=== PATIENT | female | born 1965 | race Caucasian/White ===

== ENCOUNTER → 2018-03-18 07:41 | Outpatient (CLI) | payer BC, SELFPAY ==
[2018-03-18 08:49] LABS: Absolute Lymphocyte Count 1.38 X10^3/ul (0.83-4.51); Absolute Neutrophil Count 2.9 X10^3/uL (2.0-7.7); Basophil# 0.05 X10^3/uL; Basophil% 0.9 % (0-1); Eosinophil# 0.44 X10^3/uL; Eosinophils% 8.3 % (0-5); Hematocrit 43.1 % (37-47); Hemoglobin 14.2 g/dl (12.0-15.0); Lymphocyte # 1.38 X10^3/ul (4.0); Lymphocyte % 25.9 % (19-41); Mean Corp Hgb Conc 32.9 g/gl (32-36); Mean Corpuscular Hgb 29.9 pg (27.0-32.0); Mean Corpuscular Volume 90.7 fL (81-99); Mean Platelet Vol. 9.8 fl (6.2-12.0); Monocyte# 0.56 X10^3/uL; Monocyte% 10.5 % (0-10); Neutrophil # 2.89 X10^3/uL (2.7-7.7); Neutrophil % 54.2 % (47-70); Platelet Count 289 K/mm3 (150-450); RBC Distribution Width CV 13.3 % (11.6-14.6); RBC Distribution Width SD 43.6 fl (35.1-43.9); Red Blood Count 4.75 M/mm3 (4.2-5.4); White Blood Count 5.3 K/mm3 (4.4-11.0)
[2018-03-18 08:53] LABS: POSITIVE COUNT NO; POSITIVE DIFFERENTIAL NO; POSITIVE MORPHOLOGY NO
[2018-03-18 09:22] LABS: ALB/GLOB Ratio 0.8 RATIO (0.9-2.4); AST(SGOT) 30 U/L (15-37); Alanine Aminotransfer ALT/SGPT 42 U/L (13-56); Albumin, Serum 3.5 g/dL (3.2-5.0); Alkaline Phosphatase 78 U/L (45-117); Anion Gap 5 (5-15); BUN 11 mg/dL (7-18); BUN/Creat Ratio 16.7 RATIO (10-20); Calcium,Total 8.6 mg/dL (8.5-10.1); Chloride 105 mmol/L (98-107); Cholesterol 253 mg/dL (200); Creatinine, Serum 0.66 mg/dL (0.55-1.02); EST Glomerular Filtration Rate 99 mL/min (>60); Est Glom Filt Rate - Afr Amer 120 mL/min (>60); Globulin 4.2 g/dL (2.2-4.2); Glucose 103 mg/dL (74-106); High Density Lipoprotein 50 mg/dL; Potassium 4.1 mmol/L (3.5-5.1); Protein, Total 7.7 g/dL (6.4-8.2); Sodium Level 138 mmol/L (136-145); Thyroid Stim Hormone (TSH) 2.16 uIU/mL (0.358-3.74); Triglycerides 73 mg/dL; Very Low Density Lipoprotein 15 mg/dL (5-40)
== END ==
PROVIDERS: Family Provider Family Medicine; PCP Family Medicine; Referring Provider Family Medicine; Visit Provider Family Medicine
DX: Z00.01 Encounter for general adult medical examination with abnormal findings (principal); K21.9 Gastro-esophageal reflux disease without esophagitis; R63.5 Abnormal weight gain
CPT/HCPCS: 36415; 80053; 80061; 84443; 85025

== ENCOUNTER → 2018-06-24 07:10 | Outpatient (CLI) | payer BC, SELFPAY ==
--- NOTE | 2018-06-24 07:15 | BI_ITS ---
MAMMOGRAPHY - BILATERAL SCREENING REASON FOR EXAM: Female, 52 years old. Routine annual screening examination. PERTINENT HISTORY: Non-contributory. TECHNIQUE: Digital bilateral breast vinay (3D mammographic acquisition) in the CC and MLO projections. 2-D mediolateral oblique (MLO) and craniocaudad (CC) views of both breasts were obtained. CAD: Full Field Digital Mammography with Computer Added Detection was performed. COMPARISON: Comparison is made with prior outside examination dated September 24, 2016. FINDINGS: Breast Composition: The breasts are heterogeneously dense, which may obscure small masses. There are no dominant masses or suspicious calcifications. Stable appearance of the small bilateral axillary lymph nodes. No other significant abnormalities are identified. There has been no significant change since the prior study. BI/SCREENING MAMM (CAD), BILAT IMPRESSION: Stable bilateral screening mammogram. Yearly follow-up mammogram recommended. (A) ASSESSMENT CATEGORY: BIRADS Category 2: Benign. A letter regarding these results will be sent to the patient by the facility within 30 days. Approximately 10% of breast cancers are not detected by mammography. A normal mammogram should not delay biopsy of a clinically suspicious abnormality. [id number] Electronically Signed: Paulo Corrigan MD at 15:38 EST , Service support ,
== END ==
PROVIDERS: Family Provider Family Medicine; PCP Family Medicine; Referring Provider Family Medicine; Visit Provider Family Medicine
DX: Z12.31 Encounter for screening mammogram for malignant neoplasm of breast (principal)
CPT/HCPCS: 77063; 77067

== ENCOUNTER → 2018-10-28 | Outpatient (CLI) | payer BC, SELFPAY ==
[2018-10-28 08:04] LABS: Cholesterol 246 mg/dL (200); High Density Lipoprotein 49 mg/dL; Triglycerides 64 mg/dL; Very Low Density Lipoprotein 13 mg/dL (5-40)
== END | disposition home or self-care (01) ==
LOC: LAB 06:44
PROVIDERS: Family Provider Family Medicine; PCP Family Medicine; Referring Provider Registered Nurse; Visit Provider Registered Nurse
DX: E78.5 Hyperlipidemia, unspecified (principal)
CPT/HCPCS: 36415; 80061

== ENCOUNTER → 2019-02-24 | Outpatient (CLI) | payer BC, SELFPAY ==
[2019-02-24 08:02] LABS: Absolute Lymphocyte Count 1.22 X10^3/uL (0.83-4.51); Absolute Neutrophil Count 3.2 X10^3/uL (2.0-7.7); Basophil# 0.04 X10^3/uL; Basophil% 0.8 % (0-1); Eosinophil# 0.28 X10^3/uL; Eosinophils% 5.3 % (0-5); Hematocrit 43.5 % (37-47); Hemoglobin 14.1 g/dL (12.0-15.0); Lymphocyte # 1.22 X10^3/ul (4.0); Lymphocyte % 23.3 % (19-41); Mean Corp Hgb Conc 32.4 g/dL (32-36); Mean Corpuscular Hgb 29.8 pg (27.0-32.0); Mean Platelet Vol. 9.7 fl (6.2-12.0); Monocyte# 0.49 X10^3/uL; Monocyte% 9.4 % (0-10); NRBC Flagged by Analyzer 0 % (0-5); Platelet Count 305 K/mm3 (150-450); RBC Distribution Width CV 12.8 % (11.6-14.6); RBC Distribution Width SD 43.2 fl (35.1-43.9); Red Blood Count 4.73 M/mm3 (4.2-5.4); White Blood Count 5.2 K/mm3 (4.4-11.0)
[2019-02-24 08:43] LABS: ALB/GLOB Ratio 0.8 RATIO (0.9-2.4); AST(SGOT) 19 U/L (15-37); Alanine Aminotransfer ALT/SGPT 29 U/L (13-56); Albumin, Serum 3.6 g/dL (3.2-5.0); Alkaline Phosphatase 82 U/L (45-117); Anion Gap 4 (5-15); BUN 17 mg/dL (7-18); BUN/Creat Ratio 26.2 RATIO (10-20); CRP, High Sensitivity Cardiac 5.93 mg/L; Calcium,Total 9.3 mg/dL (8.5-10.1); Chloride 108 mmol/L (98-107); Cholesterol 244 mg/dL (200); Creatinine, Serum 0.65 mg/dL (0.55-1.02); EST Glomerular Filtration Rate 101 mL/min (>60); Est Glom Filt Rate - Afr Amer 122 mL/min (>60); Estradiol 11.1 pg/mL; Follicle Stimulating Hormone 68.2 mIU/mL; Free T3 2.7 pg/mL (2.18-3.98); Globulin 4.4 g/dL (2.2-4.2); Glucose 110 mg/dL (74-106); High Density Lipoprotein 49 mg/dL; Iron 85 ug/dL (50-170); Luteinizing Hormone 30.6 mIU/mL; Magnesium 2.2 mg/dL (1.6-2.6); Potassium 3.9 mmol/L (3.5-5.1); Prolactin 13.8 ng/mL; Sodium Level 140 mmol/L (136-145); T4 Free Direct 0.83 ng/dL (0.76-1.46); T4 Total, Thyroxin 7.8 ug/dL (4.8-13.9); Triglycerides 69 mg/dL; Very Low Density Lipoprotein 14 mg/dL (5-40)
[2019-02-24 11:09] LABS: Homocysteine 6.4 umol/L (3.2-10.7)
[2019-02-24 11:10] LABS: Vitamin B12 428 pg/mL (211-911)
[2019-02-27 12:08] LABS: DHEA Sulfate 149.2 ug/dL (41.2-243.7); Insulin Like Growth Factor 198 ng/mL (53-190); Testosterone, % Free 1.96 % (0.50-2.80); Testosterone, Free 0.39 ng/dL (0.10-0.85); Testosterone, Total 20 ng/dL (3-41)
[2019-02-27 16:08] LABS: Sex Hormone-binding Globulin 46.7 nmol/L (17.3-125.0)
== END | disposition home or self-care (01) ==
PROVIDERS: Family Provider Family Medicine; PCP Family Medicine
DX: Z00.01 Encounter for general adult medical examination with abnormal findings (principal); K21.9 Gastro-esophageal reflux disease without esophagitis; E78.5 Hyperlipidemia, unspecified; M62.81 Muscle weakness (generalized); R53.82 Chronic fatigue, unspecified
CPT/HCPCS: 36415; 80053; 80061; 82306; 82533; 82607; 82627; 82670; 82746; 83001; 83002; 83036; 83090; 83540; 83735; 84144; 84146; 84270; 84305; 84402; 84403; 84436; 84439; 84443; 84481; 85025; 85027; 86141; 82626

== ENCOUNTER → 2019-03-03 | Outpatient (CLI) | payer BC, SELFPAY ==
--- NOTE | 2019-03-03 08:29 | BD_ITS ---
STUDY: DUAL ENERGY X-RAY ABSORPTIOMETRY / DXA REASON FOR EXAM: Female, 53 years old. Patient is postmenopausal. Loss of height. TECHNIQUE: Bone Mineral Density (BMD) measurements of lumbar spine and bilateral hips were obtained. COMPARISON: None. FINDINGS: Lumbar Spine (L1-L4): g/cm2 (1.069) / T-score (-0.8) / Z-score (0.0) Findings are suggestive of normal bone density with a low fracture risk. Left Femur Total: g/cm2 (1.141) / T-score (1.1) / Z-score (1.7) Left Femoral Neck: g/cm2 (1.050) / T-score (0.1) / Z-score (1.1) Right Femur Total: g/cm2 (1.145) / T-score (1.1) / Z-score (1.7) Right Femoral Neck: g/cm2 (1.081) / T-score (0.3) / Z-score (1.3) BD/Dexa Bone Density Study IMPRESSION: The patient is considered normal as outlined below according to World Epi Organization (WHO) criteria with a low fracture risk. Reference Information: The T-score is the number of standard deviations above or below the standard which is normal for young adults at their peak bone mineral density. The World Health Organization (WHO) interprets the T-scores as follows: Above -1 Normal bone density Between -1 and -2.5 Osteopenia Equal to / or below -2.5 Osteoporosis As a practical clinical guideline, osteopenia may be graded as follows: Mild -1 through -1.5 Moderate -1.6 through -2.0 Severe -2.1 through -2.4 The Z-score is the number of standard deviations above or below age-matched controls. A Z-score of less than -1.5 would be considered abnormal. References: 1. NIH Osteoporosis and Related Bone Diseases http://www.osteo.org 2. International Society for Clinical Densitometry http://www.iscd.org 3. National Osteoporosis Foundation http://www.nof.org Electronically Signed: Paulo Corrigan, at 15:30 EDT , Service support ,
== END | disposition home or self-care (01) ==
LOC: OPBD 08:22
PROVIDERS: Family Provider Family Medicine; PCP Family Medicine; Referring Provider Family Medicine; Visit Provider Family Medicine
DX: Z00.01 Encounter for general adult medical examination with abnormal findings (principal); Z78.0 Asymptomatic menopausal state; Z82.62 Family history of osteoporosis
CPT/HCPCS: 77080

== ENCOUNTER → 2019-07-07 07:40 | Outpatient (CLI) | payer BC, SELFPAY ==
--- NOTE | 2019-07-07 07:49 | US_ITS ---
STUDY: ABDOMINAL ULTRASOUND - RIGHT UPPER QUADRANT REASON FOR VISIT: Female, 53 years old [facility] ELEV[facility] TECHNIQUE: Ultrasound evaluation of the right upper quadrant was performed with real-time and static harris-scale imaging. TECHNICAL QUALITY: Adequate. COMPARISON: None. FINDINGS: Liver: The liver measures 12.5 cm. There is increased echogenicity consistent with fatty infiltration. The bile ducts are within normal limits. There is hepatic color flow. The direction of portal flow is hepatopetal. There is no demonstrated mass lesion. Gallbladder: Normal distended gallbladder. The gallbladder wall measures 2.5 mm. There is a negative sonographic Triplett''s sign. There is no pericholecystic fluid. There are no gallstones. 2 polyps are seen adherent to the gallbladder wall. The larger measures 5 mm x 4 mm x 4 mm. Common Bile Duct (C.B.D.): The common bile duct measures 3.0 mm. Pancreas: Normal size of the head, body and tail of the pancreas. There is normal echogenicity of the pancreas. There is no demonstrated pancreatic mass or cyst. Right Kidney: Normal size of the right kidney. The right kidney measures 10.6 cm x 4.8 cm x 5.9 cm. Normal renal cortex. The right cortex measures 1.9 cm. There is no demonstrated renal mass or cyst. There is no right hydronephrosis. US/Liver IMPRESSION: Fatty projection of the liver. There are 2 small gallbladder bladder polyps. Electronically Signed: Paulo Corrigan, at 14:09 EST , Service support ,
== END ==
PROVIDERS: PCP Family Medicine; Referring Provider Nurse Practitioner Family; Visit Provider Nurse Practitioner Family
DX: K76.0 Fatty (change of) liver, not elsewhere classified (principal); E78.00 Pure hypercholesterolemia, unspecified
CPT/HCPCS: 76705

== ENCOUNTER → 2020-07-08 15:19 | Outpatient (CLI) | payer BC, SELFPAY ==
[2020-07-15 09:08] LABS: Age Gdln ACOG Testing 30-65 (.)
[2020-07-15 10:04] LABS: HPV APTIMA, High Risk Negative (Negative)
[2020-07-15 22:08] LABS: HPV Reflexed? YES, CHARGE PATIENT
== END ==
PROVIDERS: PCP Family Medicine; Visit Provider Family Medicine
DX: Z12.4 Encounter for screening for malignant neoplasm of cervix (principal)
CPT/HCPCS: 87624; 88175; G0145

== ENCOUNTER → 2020-07-19 06:27 | Outpatient (CLI) | payer BC, SELFPAY ==
[2020-07-19 06:42] LABS: Absolute Lymphocyte Count 1.64 X10^3/uL (0.83-4.51); Absolute Neutrophil Count 2.5 X10^3/uL (2.0-7.7); Basophil# 0.07 X10^3/uL; Basophil% 1.4 % (0-1); Eosinophil# 0.21 X10^3/uL; Eosinophils% 4.2 % (0-5); Hematocrit 44.3 % (37-47); Hemoglobin 14.3 g/dL (12.0-15.0); Lymphocyte # 1.64 X10^3/ul (4.0); Lymphocyte % 33.1 % (19-41); Mean Corp Hgb Conc 32.3 g/dL (32-36); Mean Corpuscular Hgb 29.9 pg (27.0-32.0); Mean Corpuscular Volume 92.5 fL (81-99); Mean Platelet Vol. 9.1 fl (6.2-12.0); Monocyte# 0.53 X10^3/uL; Monocyte% 10.7 % (0-10); NRBC Flagged by Analyzer 0 % (0-5); Neutrophil % 50.4 % (47-70); Platelet Count 275 K/mm3 (150-450); RBC Distribution Width CV 12.6 % (11.6-14.6); RBC Distribution Width SD 43.6 fl (35.1-43.9); Red Blood Count 4.79 M/mm3 (4.2-5.4)
--- NOTE | 2020-07-19 07:15 | BI_ITS ---
MAMMOGRAPHY - BILATERAL SCREENING REASON FOR EXAM: Female, 54 years old. Routine annual screening examination. PERTINENT HISTORY: Non-contributory. TECHNIQUE: Digital bilateral breast mi (3D mammographic acquisition) in the CC and MLO projections. 2-D mediolateral oblique (MLO) and craniocaudad (CC) views of both breasts were obtained. CAD: Full Field Digital Mammography with Computer Added Detection was performed. COMPARISON: Comparison is made with prior study dated 06/24/2018. FINDINGS: Breast Composition: The breasts are heterogeneously dense, which may obscure small masses. There are no dominant masses or suspicious calcifications. Stable benign-appearing bilateral axillary lymph nodes. No other significant abnormalities are identified. There has been no significant change since the prior study. BI/SCRN MAMM (CAD)W/MI BILAT IMPRESSION: Stable bilateral screening mammogram. Yearly follow-up mammogram recommended. (A) ASSESSMENT CATEGORY: BIRADS Category 2: Benign. A letter regarding these results will be sent to the patient by the facility within 30 days. Approximately 10% of breast cancers are not detected by mammography. A normal mammogram should not delay biopsy of a clinically suspicious abnormality. [id number] Electronically Signed: Paulo Corrigan MD at 8:44 EST , Service support ,
[2020-07-19 07:39] LABS: ALB/GLOB Ratio 0.9 RATIO (0.9-2.4); AST(SGOT) 19 U/L (15-37); Alanine Aminotransfer ALT/SGPT 25 U/L (13-56); Albumin, Serum 3.6 g/dL (3.2-5.0); Alkaline Phosphatase 70 U/L (45-117); Anion Gap 5 (5-15); BUN 15 mg/dL (7-18); BUN/Creat Ratio 20.4 RATIO (10-20); CRP < 2.90 mg/L (0.0-3.0); Calcium,Total 8.9 mg/dL (8.5-10.1); Chloride 106 mmol/L (98-107); Cholesterol 262 mg/dL (200); Creatinine, Serum 0.74 mg/dL (0.55-1.02); EST Glomerular Filtration Rate 87 mL/min (>60); Est Glom Filt Rate - Afr Amer 105 mL/min (>60); Glucose 96 mg/dL (74-106); High Density Lipoprotein 59 mg/dL; Potassium 3.5 mmol/L (3.5-5.1); Protein, Total 7.6 g/dL (6.4-8.2); Sodium Level 139 mmol/L (136-145); Triglycerides 67 mg/dL; Very Low Density Lipoprotein 13 mg/dL (5-40)
[2020-07-19 08:46] LABS: Hemoglobin A1c 5.7 % (3.8-5.6)
== END ==
PROVIDERS: PCP Family Medicine; Referring Provider Family Medicine; Visit Provider Family Medicine
DX: Z12.31 Encounter for screening mammogram for malignant neoplasm of breast (principal); R73.03 Prediabetes; K21.9 Gastro-esophageal reflux disease without esophagitis; E78.5 Hyperlipidemia, unspecified; K76.0 Fatty (change of) liver, not elsewhere classified
CPT/HCPCS: 36415; 77063; 77067; 80053; 80061; 83036; 85025; 86140

== ENCOUNTER → 2021-09-19 | Outpatient (CLI) | payer BC, SELFPAY ==
--- NOTE | 2021-09-19 07:11 | BI_ITS ---
MAMMOGRAPHY - BILATERAL SCREENING REASON FOR EXAM: Female, 56 years old. Routine annual screening examination. PERTINENT HISTORY: Non-contributory. TECHNIQUE: Digital bilateral breast mi (3D mammographic acquisition) in the CC and MLO projections. 2-D mediolateral oblique (MLO) and craniocaudad (CC) views of both breasts were obtained. CAD: Full Field Digital Mammography with Computer Added Detection was performed. COMPARISON: Comparison is made with prior study dated 07/19/2020 and 06/24/2018. FINDINGS: Breast Composition: The breasts are heterogeneously dense, which may obscure small masses. There are no dominant masses or suspicious calcifications. Stable small benign-appearing bilateral axillary lymph nodes. No other significant abnormalities are identified. There has been no significant change since the prior study. BI/SCRN MAMM (CAD)W/MI BILAT IMPRESSION: Stable bilateral screening mammogram. Yearly follow-up mammogram recommended. (A) ASSESSMENT CATEGORY: BIRADS Category 2: Benign. A letter regarding these results will be sent to the patient by the facility within 30 days. Approximately 10% of breast cancers are not detected by mammography. A normal mammogram should not delay biopsy of a clinically suspicious abnormality. [id number] Electronically Signed: Paulo Corrigan MD at 9:17 EDT ,
== END | disposition home or self-care (01) ==
LOC: OPBI 07:09
PROVIDERS: PCP Internal Medicine; Referring Provider Internal Medicine; Visit Provider Internal Medicine
DX: Z12.31 Encounter for screening mammogram for malignant neoplasm of breast (principal)
CPT/HCPCS: 77063; 77067

== ENCOUNTER → 2021-09-26 | Outpatient (CLI) | payer BC, SELFPAY ==
[2021-09-26 07:04] LABS: Absolute Lymphocyte Count 1.52 X10^3/uL (0.83-4.51); Absolute Neutrophil Count 2.8 X10^3/uL (2.0-7.7); Basophil# 0.09 X10^3/uL; Basophil% 1.7 % (0-1); Eosinophil# 0.28 X10^3/uL; Eosinophils% 5.4 % (0-5); Hematocrit 44.1 % (37-47); Hemoglobin 14.4 g/dL (12.0-15.0); Lymphocyte # 1.52 X10^3/ul (0.83-4.51); Lymphocyte % 29.1 % (19-41); Mean Corp Hgb Conc 32.7 g/dL (32-36); Mean Corpuscular Hgb 29.9 pg (27.0-32.0); Mean Corpuscular Volume 91.7 fL (81-99); Mean Platelet Vol. 9.1 fl (6.2-12.0); Monocyte# 0.51 X10^3/uL; Monocyte% 9.8 % (0-10); NRBC Flagged by Analyzer 0 % (0-5); Neutrophil % 53.6 % (47-70); Platelet Count 299 K/mm3 (150-450); RBC Distribution Width CV 12.7 % (11.6-14.6); Red Blood Count 4.81 M/mm3 (4.2-5.4); White Blood Count 5.2 K/mm3 (4.4-11.0)
[2021-09-26 07:46] LABS: Progesterone Level 0.34 ng/mL (See Comment); Vitamin B12 636 pg/mL (211-911); Vitamin D,25 Hydroxy 33.3 ng/mL
[2021-09-26 07:47] LABS: Hemoglobin A1c 5.8 % (3.8-5.6)
[2021-09-26 07:54] LABS: ALB/GLOB Ratio 0.9 RATIO (0.9-2.4); AST(SGOT) 15 U/L (15-37); Alanine Aminotransfer ALT/SGPT 24 U/L (13-56); Albumin, Serum 3.5 g/dL (3.2-5.0); Alkaline Phosphatase 64 U/L (45-117); Anion Gap 8 (5-15); BUN 15 mg/dL (7-18); BUN/Creat Ratio 21.8 RATIO (10-20); CRP, High Sensitivity Cardiac 2.18 mg/L; Calcium,Total 8.9 mg/dL (8.5-10.1); Chloride 106 mmol/L (98-107); Cholesterol 259 mg/dL (200); Creatinine, Serum 0.69 mg/dL (0.55-1.02); EST Glomerular Filtration Rate 93 mL/min (>60); Est Glom Filt Rate - Afr Amer 113 mL/min (>60); Estradiol 12.3 pg/mL; Free T3 2.5 pg/mL (2.18-3.98); Globulin 3.9 g/dL (2.2-4.2); Glucose 106 mg/dL (74-106); High Density Lipoprotein 47 mg/dL; Homocysteine 7.5 umol/L (3.2-10.7); Iron 87 ug/dL (50-170); Iron Binding Capacity,Total 263 ug/dL (250-450); Magnesium 2.4 mg/dL (1.6-2.6); PERCENT IRON SATURATION 33.1 % (15.0-55.0); Potassium 3.9 mmol/L (3.5-5.1); Prolactin 9.7 ng/mL; Protein, Total 7.4 g/dL (6.4-8.2); Sodium Level 141 mmol/L (136-145); T4 Free Direct 0.84 ng/dL (0.76-1.46); Thyroid Stim Hormone (TSH) 2.27 uIU/mL (0.358-3.74); Triglycerides 105 mg/dL; Very Low Density Lipoprotein 21 mg/dL (5-40)
[2021-09-30 11:09] LABS: Insulin Like Growth Factor 177 ng/mL (60-207); Testosterone, % Free 1.54 % (0.50-2.80); Testosterone, Free 0.57 ng/dL (0.10-0.85); Testosterone, Total 37 ng/dL (4-50)
[2021-09-30 13:08] LABS: Sex Hormone-binding Globulin 43.5 nmol/L (17.3-125.0)
== END | disposition home or self-care (01) ==
PROVIDERS: PCP Internal Medicine; Referring Provider Internal Medicine; Visit Provider Internal Medicine
DX: E66.9 Obesity, unspecified (principal); I73.00 Raynaud's syndrome without gangrene; K86.89 Other specified diseases of pancreas; K76.0 Fatty (change of) liver, not elsewhere classified; K21.9 Gastro-esophageal reflux disease without esophagitis; E78.5 Hyperlipidemia, unspecified
CPT/HCPCS: 36415; 80053; 80061; 82306; 82533; 82607; 82627; 82670; 82746; 83036; 83090; 83540; 83550; 83735; 84144; 84146; 84270; 84305; 84402; 84403; 84439; 84443; 84481; 85025; 86141; 82626

== ENCOUNTER → 2022-12-07 | Outpatient (CLI) | payer BC, SELFPAY ==
--- NOTE | 2022-12-07 07:08 | BI_ITS ---
MAMMOGRAPHY - BILATERAL SCREENING 3-D TOMOSYNTHESIS REASON FOR EXAM: Female, 57 years old. Routine screening PERTINENT HISTORY: No significant family history. TECHNIQUE: 2-D mammograms and 3-D Tomosynthesis of the breast (s) were performed. CAD was performed. COMPARISON: 07/19/2020 FINDINGS: The breast composition is heterogeneously dense that can obscure small breast masses. Scattered benign calcifications are seen. No dense spiculated masses or suspicious microcalcifications are identified. No architectural distortion is identified. There is no skin thickening or retraction. There has been no significant change since the prior study. BI/SCRN MAMM (CAD)W/MI BILAT IMPRESSION: No mammographic signs of malignancy. Routine yearly mammograms recommended. ASSESSMENT CATEGORY: BIRADS Category 2: Benign. A letter regarding these results will be sent to the patient by the facility within 30 days. FOLLOW UP RECOMMENDATION: Yearly follow up mammogram recommended. (A) Approximately 10% of breast cancers are not detected by mammography. A normal mammogram should not delay biopsy of a clinically suspicious abnormality. Electronically Signed: Navid Aviles MD at 8:30 EDT ,
== END | disposition home or self-care (01) ==
LOC: OPBI 07:06
PROVIDERS: PCP Internal Medicine; Referring Provider Internal Medicine; Visit Provider Internal Medicine
DX: Z12.31 Encounter for screening mammogram for malignant neoplasm of breast (principal)
CPT/HCPCS: 77063; 77067

== ENCOUNTER → 2023-04-03 | Outpatient (CLI) | payer BC, SELFPAY ==
[2023-04-03 09:11] LABS: Absolute Lymphocyte Count 1.48 X10^3/uL (0.83-4.51); Absolute Neutrophil Count 3.1 X10^3/uL (2.0-7.7); Basophil# 0.06 X10^3/uL; Basophil% 1.1 % (0-1); Eosinophil# 0.34 X10^3/uL; Eosinophils% 6.1 % (0-5); Hematocrit 44.4 % (37-47); Hemoglobin 14.2 g/dL (12.0-15.0); Lymphocyte # 1.48 X10^3/ul (0.83-4.51); Lymphocyte % 26.8 % (19-41); Mean Corpuscular Hgb 29.6 pg (27.0-32.0); Mean Corpuscular Volume 92.5 fL (81-99); Mean Platelet Vol. 9.3 fl (6.2-12.0); Monocyte# 0.59 X10^3/uL; Monocyte% 10.7 % (0-10); NRBC Flagged by Analyzer 0 % (0-5); Neutrophil # 3.05 X10^3/uL (2.7-7.7); Neutrophil % 55.1 % (47-70); Platelet Count 319 K/mm3 (150-450); RBC Distribution Width CV 13.4 % (11.6-14.6); White Blood Count 5.5 K/mm3 (4.4-11.0)
[2023-04-03 09:50] LABS: Insulin 12.7 mU/L (2.6-37.6); Vitamin D,25 Hydroxy 42.5 ng/mL
[2023-04-03 09:51] LABS: Hemoglobin A1c 5.8 % (3.8-5.6)
[2023-04-03 09:59] LABS: ALB/GLOB Ratio 0.8 RATIO (0.9-2.4); AST(SGOT) 18 U/L (15-37); Alanine Aminotransfer ALT/SGPT 27 U/L (13-56); Albumin, Serum 3.4 g/dL (3.2-5.0); Alkaline Phosphatase 71 U/L (45-117); Anion Gap 7 (5-15); BUN 12 mg/dL (7-18); BUN/Creat Ratio 17.8 RATIO (10-20); Calcium,Total 8.3 mg/dL (8.5-10.1); Chloride 106 mmol/L (98-107); Cholesterol 251 mg/dL (200); Creatinine, Serum 0.67 mg/dL (0.55-1.02); EST Glomerular Filtration Rate 95 mL/min (>60); Est Glom Filt Rate - Afr Amer 115 mL/min (>60); Free T3 2.5 pg/mL (2.18-3.98); Globulin 4.2 g/dL (2.2-4.2); Glucose 98 mg/dL (74-106); High Density Lipoprotein 51 mg/dL; Potassium 3.8 mmol/L (3.5-5.1); Protein, Total 7.6 g/dL (6.4-8.2); Sodium Level 140 mmol/L (136-145); T4 Free Direct 0.83 ng/dL (0.76-1.46); Thyroid Stim Hormone (TSH) 1.95 uIU/mL (0.358-3.74); Triglycerides 104 mg/dL; Very Low Density Lipoprotein 21 mg/dL (5-40)
== END | disposition home or self-care (01) ==
LOC: LAB 08:10
PROVIDERS: PCP Internal Medicine; Referring Provider Internal Medicine; Visit Provider Internal Medicine
DX: Z00.00 Encounter for general adult medical examination without abnormal findings (principal); K76.0 Fatty (change of) liver, not elsewhere classified; E78.5 Hyperlipidemia, unspecified; E55.9 Vitamin D deficiency, unspecified; R73.9 Hyperglycemia, unspecified
CPT/HCPCS: 36415; 80053; 80061; 82306; 83036; 83525; 84439; 84443; 84481; 85025

== ENCOUNTER → 2024-01-30 | Outpatient (CLI) | payer BC, SELFPAY ==
--- NOTE | 2024-01-30 07:05 | BI_ITS ---
MAMMOGRAPHY - BILATERAL SCREENING REASON FOR EXAM: Female, 58 years old. Routine annual screening examination. PERTINENT HISTORY: Non-contributory. TECHNIQUE: Digital bilateral breast mi (3D mammographic acquisition) in the CC and MLO projections. 2-D mediolateral oblique (MLO) and craniocaudad (CC) views of both breasts were obtained. CAD: Full Field Digital Mammography with Computer Added Detection was performed. COMPARISON: Comparison is made with prior study dated December 07, 2022 and September 19, 2021. FINDINGS: Breast Composition: The breasts are heterogeneously dense, which may obscure small masses. There are no dominant masses or suspicious calcifications. Stable small benign-appearing bilateral axillary lymph nodes. No other significant abnormalities are identified. There has been no significant change since the prior study. BI/SCRN MAMM (CAD)W/MI BILAT IMPRESSION: Stable bilateral screening mammogram. Yearly follow-up mammogram recommended. (A) ASSESSMENT CATEGORY: BIRADS Category 2: Benign. A letter regarding these results will be sent to the patient by the facility within 30 days. Approximately 10% of breast cancers are not detected by mammography. A normal mammogram should not delay biopsy of a clinically suspicious abnormality. [id number] Electronically Signed: Paulo Corrigan MD at 8:21 EDT ,
== END | disposition home or self-care (01) ==
PROVIDERS: PCP Internal Medicine; Referring Provider Internal Medicine; Visit Provider Internal Medicine
DX: Z12.31 Encounter for screening mammogram for malignant neoplasm of breast (principal)
CPT/HCPCS: 77063; 77067

== ENCOUNTER → 2024-05-01 | Outpatient (CLI) | payer BC, SELFPAY ==
[2024-05-01 08:07] LABS: Absolute Lymphocyte Count 1.38 X10^3/uL (0.83-4.51); Absolute Neutrophil Count 2.6 X10^3/uL (2.0-7.7); Basophil# 0.09 X10^3/uL; Basophil% 1.8 % (0-1); Eosinophil# 0.35 X10^3/uL; Hematocrit 43.6 % (37-47); Hemoglobin 14.4 g/dL (12.0-15.0); Lymphocyte # 1.38 X10^3/ul (0.83-4.51); Lymphocyte % 27.6 % (19-41); Mean Corpuscular Hgb 29.9 pg (27.0-32.0); Mean Corpuscular Volume 90.6 fL (81-99); Mean Platelet Vol. 9.3 fl (6.2-12.0); Monocyte# 0.57 X10^3/uL; Monocyte% 11.4 % (0-10); NRBC Flagged by Analyzer 0 % (0-5); Platelet Count 322 K/mm3 (150-450); RBC Distribution Width CV 13.2 % (11.6-14.6); Red Blood Count 4.81 M/mm3 (4.2-5.4)
[2024-05-01 08:46] LABS: Hemoglobin A1c 5.9 % (3.8-5.6)
[2024-05-01 08:55] LABS: ALB/GLOB Ratio 0.9 RATIO (0.9-2.4); AST(SGOT) 17 U/L (15-37); Alanine Aminotransfer ALT/SGPT 25 U/L (13-56); Albumin, Serum 3.5 g/dL (3.2-5.0); Alkaline Phosphatase 76 U/L (45-117); Anion Gap 3 (5-15); BUN 15 mg/dL (7-18); BUN/Creat Ratio 21.2 RATIO (10-20); Calcium,Total 9.9 mg/dL (8.5-10.1); Chloride 106 mmol/L (98-107); Cholesterol 303 mg/dL (200); Creatinine, Serum 0.71 mg/dL (0.55-1.02); EST Glomerular Filtration Rate 90 mL/min (>60); Est Glom Filt Rate - Afr Amer 108 mL/min (>60); Estradiol < 11.0 pg/mL; Glucose 114 mg/dL (74-106); High Density Lipoprotein 55 mg/dL; Potassium 3.9 mmol/L (3.5-5.1); Protein, Total 7.5 g/dL (6.4-8.2); Sodium Level 138 mmol/L (136-145); Triglycerides 97 mg/dL; Very Low Density Lipoprotein 19 mg/dL (5-40)
[2024-05-04 09:22] LABS: PROGESTERONE 0.1 ng/mL (.)
[2024-05-04 15:36] LABS: Vitamin D,25 Hydroxy 34.8 ng/mL
== END | disposition home or self-care (01) ==
LOC: LAB 07:33
PROVIDERS: PCP Internal Medicine; Referring Provider Internal Medicine; Visit Provider Internal Medicine
DX: Z00.00 Encounter for general adult medical examination without abnormal findings (principal); E78.5 Hyperlipidemia, unspecified; E66.811 Obesity, class 1; K76.0 Fatty (change of) liver, not elsewhere classified; K21.9 Gastro-esophageal reflux disease without esophagitis; Z13.220 Encounter for screening for lipoid disorders; E55.9 Vitamin D deficiency, unspecified; R73.9 Hyperglycemia, unspecified
CPT/HCPCS: 36415; 80053; 80061; 82306; 82670; 83036; 83735; 84144; 84443; 85025

== ENCOUNTER → 2025-05-11 | Outpatient (CLI) | payer BC, SELFPAY ==
--- NOTE | 2025-05-11 07:15 | BI_ITS ---
EXAM: SCRN MAMM (CAD)W/MI BILAT DATE: 05/11/2025 CLINICAL HISTORY: F, Age 59 y/o , BREAST CANCER SCREENING TECHNIQUE: Procedure Code: [id number] Modality: MG Procedure: SCRN MAMM (CAD)W/MI BILAT COMPARISON: Prior exam(s) were compared FINDINGS: TISSUE DENSITY: The breasts are heterogeneously dense, which may obscure small masses. Bilateral Breast Mammographic Findings: No significant masses, calcifications or other abnormalities are identified. BI/SCRN MAMM (CAD)W/MI BILAT IMPRESSION: No mammographic evidence of malignancy. OVERALL FINAL ASSESSMENT BI-RADS 1: NEGATIVE. RECOMMENDATION: Routine annual follow-up in 1 Year Additional Recommendation none A letter with findings and recommendations will be mailed to the patient. Reading Location: [id number]
--- OUTSIDE RECORDS SUMMARY | 2025-05-11 07:19 | XMS RPT_ITS | CCD ---
Author Organization [facility] Care Team Providers Care Fact Checker Name Role Phone Dr. Lu Faust Primary Care Provider [phone] Marilyn Weber Attending Provider Unavailable Dr. Lu Faust Referring Provider Dr. Davonte Arellano Attending Provider [phone] Dr. Davonte Arellano Primary Care Provider Dr. Davonte Arellano Attending Provider [phone] DAVONTE ARELLANO Consulting Unavailable WON NORTON Attending Unavailable WON NORTON Primary Care Unavailable WON NORTON Admitting Unavailable PROVIDER, UNKNOWN Consulting Unavailable Davonte Arellano Attending Unavailable Davonte Arellano Primary Care Unavailable Davonte Arellano Primary Care Unavailable Davonte Arellano Attending Unavailable Davonte Arellano Referring Unavailable Davonte Arellano Primary Care Unavailable Davonte Arellano Attending Unavailable Davonte Arellano Referring Unavailable Medications Current Medications Medication Drug Class(es) Dates Sig (Normalized) Sig (Original) antronex (2 sources) Start: 08-24-2021 antronex Activ e PO August 24, 2021 11:13am Start: 08-24-2021 antronex Activ e PO August 23, 2021 11:00pm calcium lactate 100 mg oral capsule (2 sources) Start: 08-24-2021 take 100 mg by mouth twice daily Calcium Lactate Active 100 MG PO TWICE A DAY August 24, 2021 11:14am cholecalciferol 0.025 mg oral capsule (2 sources) Vitamin D Start: 08-24-2021 take 25 ug by mouth once daily Cholecalciferol (Vitamin D3) Active 25 MCG PO DAILY August 24, 2021 11:13am cyruta (2 sources) Start: 08-24-2021 cyruta Active PO August 24, 2021 11:14am Start: 08-24-2021 cyruta Active PO August 23, 2021 11:00pm enzycore (2 sources) Start: 08-24-2021 enzycore Activ e PO August 24, 2021 11:13am Start: 08-24-2021 enzycore Activ e PO August 23, 2021 11:00pm Lactobacillus Combination No.9 (Adult 50 Plus Probiotic) 4 billion cell capsule (1 source) Start: 03-04-2023 take 4 capsules by mouth once daily Lactobacillus Combination No.9 (Adult 50 Plus Probiotic) 4 billion cell capsule Active 4000 MMU CELLS PO DAILY March 03, 2023 11:00pm administer with a meal magnesium lactate 84 mg extended release oral tablet (1 source) Start: 03-04-2023 take 84 mg by mouth once daily Magnesium L-Lactate Active 84 MG PO DAILY March 03, 2023 11:00pm Milk Thistle (2 sources) Start: 08-24-2021 take 150 mg by mouth twice daily Milk Thistle Active 150 MG PO TWICE A DAY August 24, 2021 11:14am give with meal/snack Start: 08-24-2021 End: 03-04-2023 take 150 mg by mouth twice daily Milk Thistle Discontinued 150 MG PO TWICE A DAY August 23, 2021 11:00pm March 04, 2023 7:32am give with meal/snack [place] Extract (2 sources) Start: 08-24-2021 [place] Ext ract Active MG PO August 24, 2021 11:15am Start: 08-24-2021 [place] Ext ract Active MG PO August 23, 2021 11:00pm Zinc (2 sources) Start: 08-24-2021 take 50 mg by mouth once daily Zinc Active 50 MG PO DAILY August 24, 2021 11:14am Start: 08-24-2021 take 50 mg by mouth once daily Zinc Active 50 MG PO DAILY August 23, 2021 11:00pm zypan (2 sources) Start: 08-24-2021 zypan Active P O August 24, 2021 11:13am Start: 08-24-2021 zypan Active P O August 23, 2021 11:00pm Problems Problem Classification Problem Date Documented Date Episodic/Chronic Disorders of lipid metabolism (4 sources) Hyperlipidemia; Translations: [Hyperlipidemia, unspecified] Chronic Esophageal disorders (3 sources) Gastroesophageal reflux disease; Translations: [Gastro-esophageal reflux disease without esophagitis] Chronic Other acquired deformities (2 sources) Scoliosis deformity of spine; Translations: [Scoliosis, unspecified] 08-24-2021 Chronic Other circulatory disease (2 sources) Raynaud's disease; Translations: [Raynaud's syndrome without gangrene] 08-29-2021 Chronic Other circulatory disease (1 source) Raynaud's syndrome without gangrene; Translations: [Raynaud's syndrome] Chronic Other liver diseases (2 sources) Steatosis of liver; Translations: [Fatty (change of) liver, not elsewhere classified] 08-29-2021 Chronic Other liver diseases (2 sources) Fatty (change of) liver, not elsewhere classified; Translations: [Other chronic nonalcoholic liver disease] Chronic Other nutritional; endocrine; and metabolic disorders (2 sources) Obese class I; Translations: [Obesity, unspecified] 08-29-2021 Chronic Other nutritional; endocrine; and metabolic disorders (1 source) Obesity, unspecified; Translations: [Obesity, unspecified] Chronic Other screening for suspected conditions (not mental disorders or infectious disease) (3 sources) Patient encounter status; Translations: [Encounter for other screening for malignant neoplasm of breast] Onset: 03-29-2025 08-29-2021 Episodic Pancreatic disorders (not diabetes) (3 sources) Pancreatic insufficiency; Translations: [Other specified diseases of pancreas] Episodic Spondylosis; intervertebral disc disorders; other back problems (2 sources) Back problem; Translations: [Dorsopathy, unspecified] 08-24-2021 Episodic Results Test Name Value Interpretation Reference Range Facility MR/BMS.IMBon 03-25-2025 MR/BMS.IMB [facility] [address] [place] [address] OFFICE VISIT Date of Service: 03/25/25 MR#: [id number] Acct: [id number] Name: VERNON LEYVA Rep #: [id number] : [id number] Provider: Dr. 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 Accompanied by: Self Is patient in pain?: No Allergies No Known Allergies Allergy (Verified 03/25/25 11:02) Medications ???Medication ???Instructions ???Recorded ???Confirmed ???Type antronex PO 08/24/21 03/25/25 History calcium lactate 100 mg PO BID 08/24/21 03/25/25 Hi story cyruta PO 08/24/21 03/25/25 History enzycore PO 08/24/21 03/25/25 History olive leaf extract 250 mg capsule mg PO 08/24/21 03/25/25 History zinc 50 mg tablet 50 mg PO DAILY 08/24/21 03/25/25 H istory zypan PO 08/24/21 03/25/25 History lactobacillus combination no.9 4 4,000 mmu cells PO DAILY 03/04/23 03/25/25 History billion cell capsule (Adult 50 Plus Probiotic) magnesium L-lactate 84 mg 84 mg PO DAILY 03/04/23 03/25/25 H istory tablet,extended release cod liver oil 1 cap PO ONCE 03/16/24 03/25/25 Hi story Slippery elm root PO 03/25/25 History berberine-herbal drugs capsule cap PO BID 03/25/25 03/25/25 Histo ry cataplex C PO 03/25/25 History cataplex D PO 03/25/25 History coenzyme Q10 10 mg capsule 10 mg PO ONCE 03/25/25 03/25/25 Hi story PFSH Medical History Raynaud's disease Pancreatic insufficiency Fatty liver GERD (gastroesophageal reflux disease) Hyperlipemia Scoliosis Back problem Surgical History History of toe surgery History of dilatation and curettage History of tonsillectomy Family History Sister Alcoholism Father Heart disease Hyperlipemia Mother Osteoporosis Social History Smoking Status: Never smoker alcohol intake: never substance use type: does not use what type of physical activity do you participate in: walking and bicycling frequency: daily HPI HPI Chief Complaint: No acute concerns Details: VERNON LEYVA, is a 59 F who presents to the office today for annual follow-up/wellness visit. Patient is a 59-year-old female who has a history of hyperlipidemia, fatty liver, however she takes no routine long-term prescription medications. Overall she does not have any new acute concerns. Last year she did mention an area on her back where she had been somewhat of an abnormal sensation. Uncomfortable, not severe pain, tingly discomfort. This is somewhat towards the middle of the back, thoracic region. 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 She does not necessarily want to go back there and I did make suggestions of another chiropractic locally that she could consider. In addition, she had tried myofascial therapy which could be considered once again. She does have underlying scoliosis which could be contributing. Review of systems per chart. No chest pain, chest tightness, shortness of breath, wheeze, cough, congestion, fever, chills, nausea or vomiting. Appetites been stable. No dysuria, urgency or frequency reported. Physical exam. Vital signs on chart. PERRLA. Sclera are clear. TMs are unremarkable with normal light reflexes. Canals are unremarkable. Posterior pharynx is unremarkable. Good dentition. No cervical or supraclavicular lymph nodes enlarged or tender. No clear thyromegaly. No thyroid nodules readily palpable. No carotid bruits. Lungs are without wheeze, rhonchi, rales. No E/A changes are heard. Heart is regular. Not tachycardic. No clear murmur, rub, or gallop is identified. The abdomen is soft. Bowel sounds are present. Nontender nondistended abdomen. No clear palpable masses in the abdomen. No significant leg edema. Cranial nerve examination 2 through 12 are grossly unremarkable nonlateralizing. No obvious rashes. No obvious significant skin lesions are identified. ROS Const Constitutional: No body ache, chills, excessive sweating, fatigue, fever(s), frequent falls, headache(s), snoring, weakness or change in appetite Eyes Eyes: No blurry vision, change in vis (more content not included)... Normal [facility] PROGESTERONE 4317on 05-04-20 24 PROGESTERONE 0.1 ng/mL Normal . [facility] Comment on above: Order Comment: N Result Comment: Foll icular phase 0.1 - 0.9 Luteal phase 1.8 - 23.9 Ovulation phase 0.1 - 12.0 First trimester 11.0 - 44.3 Second trimester 25.4 - 83.3 Third trimester 58.7 - 214.0 Postmenopausal 0.0 - 0.1 Performed at: [facility] [address] [id number] Quality Assurance Tester: Robbi Suarez PhD, Phone: [phone] Performed By: #### L 100.0100, L501.9520, L501.9985, L801.2600, L500.4050, L500.4100, L506.1000, L501.5200, L3300.1750 #### [facility] [address] [place], [address] Vitamin D,25 Hydroxyon 05-04 Vitamin D 25-OH 34.8 ng/mL Normal [facility] Comment on above: Result Comment: Lizabeth min D 25(OH) Status Range Deficiency <20 ng/mL (50nmol/L) Insufficiency 20 - 30 ng/mL (50 - 75 nmol/L) Sufficiency 30 - 100 ng/mL (75 - 250 nmol/L) Toxicity >100 ng/mL (>250 nmol/L) Performed By: #### L 100.0100, L501.9520, L501.9985, L801.2600, L500.4050, L500.4100, L506.1000, L501.5200, L3300.1750 #### [facility] [address] [place], [address] CBC W/Diff, Automatedon 12 Absolute Lymph 1.38 X10 3/uL Normal 0.83-4.51 [facility] Comment on above: Performed By: #### L 100.0100, L501.9520, L501.9985, L801.2600, L500.4050, L500.4100, L506.1000, L501.5200, L3300.1750 #### [facility] [address] [place], [address] Absolute Neut 2.6 X10 3/uL Normal 2.0-7.7 [facility] Comment on above: Performed By: #### L 100.0100, L501.9520, L501.9985, L801.2600, L500.4050, L500.4100, L506.1000, L501.5200, L3300.1750 #### [facility] [address] [place], [address] Basophils/100 WBC (Bld) 1.8 % High 0-1 [facility] Comment on above: Performed By: #### L 100.0100, L501.9520, L501.9985, L801.2600, L500.4050, L500.4100, L506.1000, L501.5200, L3300.1750 #### [facility] [address] [place], [address] Eosinophils/100 WBC (Bld) 7.0 % High 0-5 [facility] Comment on above: Performed By: #### L 100.0100, L501.9520, L501.9985, L801.2600, L500.4050, L500.4100, L506.1000, L501.5200, L3300.1750 #### [facility] [address] [place], [address] Erythrocyte distribution width (RBC) [Ratio] 13.2 % Normal 11.6-14.6 [facility] Comment on above: Performed By: #### L 100.0100, L501.9520, L501.9985, L801.2600, L500.4050, L500.4100, L506.1000, L501.5200, L3300.1750 #### [facility] [address] [place], [place], [phone] (676) Hematocrit (Bld) [Volume fraction] 43.6 % Normal 37-47 [facility] Comment on above: Performed By: #### L 100.0100, L501.9520, L501.9985, L801.2600, L500.4050, L500.4100, L506.1000, L501.5200, L3300.1750 #### [facility] [address] [place], [address] (324) Hemoglobin (Bld) [Mass/Vol] 14.4 g/dL Normal 12.0-15.0 [facility] Comment on above: Performed By: #### L 100.0100, L501.9520, L501.9985, L801.2600, L500.4050, L500.4100, L506.1000, L501.5200, L3300.1750 #### [facility] [address] [place], [place], [phone] (946) IG% 0.200 Normal 0.0-0.9 [facility] Comment on above: Result Comment: IG% - Immature Granulocytes (promyelocytes, myelocytes and metamyelocytes) > 1% indicates that a LEFT SHIFT is Present. Performed By: #### L 100.0100, L501.9520, L501.9985, L801.2600, L500.4050, L500.4100, L506.1000, L501.5200, L3300.1750 #### [facility] [address] [place], [address] (377) Lymphocytes/100 WBC (Bld) 27.6 % Normal 19-41 [facility] Comment on above: Performed By: #### L 100.0100, L501.9520, L501.9985, L801.2600, L500.4050, L500.4100, L506.1000, L501.5200, L3300.1750 #### [facility] [address] [place], [address] MCH (RBC) [Entitic mass] 29.9 pg Normal 27.0-32.0 [facility] Comment on above: Performed By: #### L 100.0100, L501.9520, L501.9985, L801.2600, L500.4050, L500.4100, L506.1000, L501.5200, L3300.1750 #### [facility] [address] [place], [address] MCHC (RBC) [Mass/Vol] 33.0 g/dL Normal 32-36 [facility] Comment on above: Performed By: #### L 100.0100, L501.9520, L501.9985, L801.2600, L500.4050, L500.4100, L506.1000, L501.5200, L3300.1750 #### [facility] [address] [place], [address] MCV (RBC) [Entitic vol] 90.6 fL Normal 81-99 [facility] Comment on above: Performed By: #### L 100.0100, L501.9520, L501.9985, L801.2600, L500.4050, L500.4100, L506.1000, L501.5200, L3300.1750 #### [facility] [address] [place], [address] Monocytes/100 WBC (Bld) 11.4 % High 0-10 [facility] Comment on above: Performed By: #### L 100.0100, L501.9520, L501.9985, L801.2600, L500.4050, L500.4100, L506.1000, L501.5200, L3300.1750 #### [facility] [address] [place], [address] Neutrophils/100 WBC (Bld) 52.0 % Normal 47-70 [facility] Comment on above: Performed By: #### L 100.0100, L501.9520, L501.9985, L801.2600, L500.4050, L500.4100, L506.1000, L501.5200, L3300.1750 #### [facility] [address] [place], [address] Nucleated RBC (Bld) [#/Vol] 0 10*3/uL Normal 0-5 [facility] Comment on above: Performed By: #### L 100.0100, L501.9520, L501.9985, L801.2600, L500.4050, L500.4100, L506.1000, L501.5200, L3300.1750 #### [facility] [address] [place], [address] Platelet mean volume (Bld) [Entitic vol] 9.3 fL Normal 6.2-12.0 [facility] Comment on above: Performed By: #### L 100.0100, L501.9520, L501.9985, L801.2600, L500.4050, L500.4100, L506.1000, L501.5200, L3300.1750 #### [facility] [address] [place], [address] Platelets (Bld) [#/Vol] 322 10*3/uL Normal 150-450 [facility] Comment on above: Performed By: #### L 100.0100, L501.9520, L501.9985, L801.2600, L500.4050, L500.4100, L506.1000, L501.5200, L3300.1750 #### [facility] [address] [place], [address] RBC (Bld) [#/Vol] 4.81 10*6/uL Normal 4.2-5.4 [facility] Comment on above: Performed By: #### L 100.0100, L501.9520, L501.9985, L801.2600, L500.4050, L500.4100, L506.1000, L501.5200, L3300.1750 #### [facility] [address] [place], [address] RDW SD 44.0 fl High 35.1-43.9 [facility] Comment on above: Performed By: #### L 100.0100, L501.9520, L501.9985, L801.2600, L500.4050, L500.4100, L506.1000, L501.5200, L3300.1750 #### [facility] [address] [place] [place], [address] WBC (Bld) [#/Vol] 5.0 10*3/uL Normal 4.4-11.0 [facility] Comment on above: Performed By: #### L 100.0100, L501.9520, L501.9985, L801.2600, L500.4050, L500.4100, L506.1000, L501.5200, L3300.1750 #### [facility] [address] [place] [place], [address] Comprehensive Metabolic Prof [facility] 05-01-2024 Albumin [Mass/Vol] 3.5 g/dL Normal 3.2-5.0 [facility] Comment on above: Performed By: #### L 100.0100, L501.9520, L501.9985, L801.2600, L500.4050, L500.4100, L506.1000, L501.5200, L3300.1750 #### [facility] [address] [place], [address] Albumin/Globulin [Mass ratio] 0.9 {ratio} Normal 0.9-2.4 [facility] Comment on above: Performed By: #### L 100.0100, L501.9520, L501.9985, L801.2600, L500.4050, L500.4100, L506.1000, L501.5200, L3300.1750 #### [facility] [address] [place], [address] ALK P 76 U/L Normal 45-117 [facility] Comment on above: Performed By: #### L 100.0100, L501.9520, L501.9985, L801.2600, L500.4050, L500.4100, L506.1000, L501.5200, L3300.1750 #### [facility] [address] [place], [address] ALT [Catalytic activity/Vol] 25 U/L Normal 13-56 [facility] Comment on above: Performed By: #### L 100.0100, L501.9520, L501.9985, L801.2600, L500.4050, L500.4100, L506.1000, L501.5200, L3300.1750 #### [facility] [address] [place], [address] AST [Catalytic activity/Vol] 17 U/L Normal 15-37 [facility] Comment on above: Performed By: #### L 100.0100, L501.9520, L501.9985, L801.2600, L500.4050, L500.4100, L506.1000, L501.5200, L3300.1750 #### [facility] [address] [place], [address] Bilirubin [Mass/Vol] 0.50 mg/dL Normal 0.20-1.00 [facility] Comment on above: Result Comment: For patients on eltrombopag therapy, use of Dimension [place] TBIL is not recommended. Performed By: #### L 100.0100, L501.9520, L501.9985, L801.2600, L500.4050, L500.4100, L506.1000, L501.5200, L3300.1750 #### [facility] [address] [place], [address] BUN/CRE 21.2 RATIO High 10-20 [facility] Comment on above: Performed By: #### L 100.0100, L501.9520, L501.9985, L801.2600, L500.4050, L500.4100, L506.1000, L501.5200, L3300.1750 #### [facility] [address] [place], [address] CA,Total 9.9 mg/dL Normal 8.5-10.1 [facility] Comment on above: Performed By: #### L 100.0100, L501.9520, L501.9985, L801.2600, L500.4050, L500.4100, L506.1000, L501.5200, L3300.1750 #### [facility] [address] [place], [address] Chloride [Moles/Vol] 106 mmol/L Normal 98-107 [facility] Comment on above: Performed By: #### L 100.0100, L501.9520, L501.9985, L801.2600, L500.4050, L500.4100, L506.1000, L501.5200, L3300.1750 #### [facility] [address] [place], [address] CO2 [Moles/Vol] 30.0 mmol/L Normal 21.0-32.0 [facility] Comment on above: Performed By: #### L 100.0100, L501.9520, L501.9985, L801.2600, L500.4050, L500.4100, L506.1000, L501.5200, L3300.1750 #### [facility] [address] [place], [address] Creatinine [Mass/Vol] 0.71 mg/dL Normal 0.55-1.02 [facility] Comment on above: Result Comment: The validity of the calculated GFR GFRAA in patients over 70 years has not been determined. Clinical correlation is essential. Performed By: #### L 100.0100, L501.9520, L501.9985, L801.2600, L500.4050, L500.4100, L506.1000, L501.5200, L3300.1750 #### [facility] [address] [place], [place], [id number] (099 EST GFR - AA 108 mL/min Normal >60 [facility] Comment on above: Result Comment: Afri can Spanish GFR Calc Performed By: #### L 100.0100, L501.9520, L501.9985, L801.2600, L500.4050, L500.4100, L506.1000, L501.5200, L3300.1750 #### [facility] [address] [place], [address] GAP 3 Low 5-15 [facility] Comment on above: Performed By: #### L 100.0100, L501.9520, L501.9985, L801.2600, L500.4050, L500.4100, L506.1000, L501.5200, L3300.1750 #### [facility] [address] [place], [place], [id number] (172 GFR/1.73 sq M.predicted among non-blacks MDRD (S/P/Bld) [Vol rate/Area] 90 mL/min/{1.73_m2} Normal >60 [facility] Comment on above: Result Comment: Non- GFR Calc Performed By: #### L 100.0100, L501.9520, L501.9985, L801.2600, L500.4050, L500.4100, L506.1000, L501.5200, L3300.1750 #### [facility] [address] [place], [address] Globulin (S) [Mass/Vol] 4.0 g/dL Normal 2.2-4.2 [facility] Comment on above: Performed By: #### L 100.0100, L501.9520, L501.9985, L801.2600, L500.4050, L500.4100, L506.1000, L501.5200, L3300.1750 #### [facility] [address] [place], [address] Glucose [Mass/Vol] 114 mg/dL High 74-106 [facility] Comment on above: Result Comment: Fast ing Glucose result from 100 to 125 mg/dL suggests IMPAIRED HOMEOSTASIS per A.D.A. criteria. Performed By: #### L 100.0100, L501.9520, L501.9985, L801.2600, L500.4050, L500.4100, L506.1000, L501.5200, L3300.1750 #### [facility] [address] [place], [address] Potassium [Moles/Vol] 3.9 mmol/L Normal 3.5-5.1 [facility] Comment on above: Performed By: #### L 100.0100, L501.9520, L501.9985, L801.2600, L500.4050, L500.4100, L506.1000, L501.5200, L3300.1750 #### [facility] [address] [place], [address] Sodium [Moles/Vol] 138 mmol/L Normal 136-145 [facility] Comment on above: Performed By: #### L 100.0100, L501.9520, L501.9985, L801.2600, L500.4050, L500.4100, L506.1000, L501.5200, L3300.1750 #### [facility] [address] [place], [address] T PROT 7.5 g/dL Normal 6.4-8.2 [facility] Comment on above: Performed By: #### L 100.0100, L501.9520, L501.9985, L801.2600, L500.4050, L500.4100, L506.1000, L501.5200, L3300.1750 #### [facility] [address] [place], [place], [id number] Urea nitrogen [Mass/Vol] 15 mg/dL Normal 7-18 [facility] Comment on above: Performed By: #### L 100.0100, L501.9520, L501.9985, L801.2600, L500.4050, L500.4100, L506.1000, L501.5200, L3300.1750 #### [facility] [address] [place], [address] Estradiolon 05-01-2024 ESTRADIOL < 11.0 Normal [facility] Comment on above: Result Comment: NORM AL REFERENCE RANGES FEMALE FOLLICULAR 21.4 - 164.8 pg/mL MID-CYCLE PEAK 49.9 - 367.2 pg/mL LUTEAL 40.2 - 259.0 pg/mL POST-MENOPAUSAL ON MHT <11.0 - 462.1 pg/mL NOT ON MHT <11.0 - 58.3 pg/mL MALE <11.0 - 52.5 pg/mL NOTE: [employer] HAS CONFIRMED THE DRUG FULVETRANT (FASLODEX) MAY CAUSE FALSELY ELEVATED ESTRADIOL RESULTS WHEN USING THIS TEST METHOD. IF PATIENT IS TAKING FULVESTRANT AN ALTERNATIVE METHOD SHOULD BE USED TO DETERMINE ESTRADIOL CONCENTRATION. Performed By: #### L 100.0100, L501.9520, L501.9985, L801.2600, L500.4050, L500.4100, L506.1000, L501.5200, L3300.1750 #### [facility] [address] [place], [address] Hemoglobin A1con 05-01-2024 HbA1c (Bld) [Mass fraction] 5.9 % High 3.8-5.6 [facility] Comment on above: Result Comment: Norm al < 5.7 % Prediabetic 5.7 - 6.4 % Diabetic >or= 6.5 % Please note range changes. Performed By: #### L 100.0100, L501.9520, L501.9985, L801.2600, L500.4050, L500.4100, L506.1000, L501.5200, L3300.1750 #### [facility] [address] [place], [address] Lipid Profileon 05-01-2024 Cholesterol [Mass/Vol] 303 mg/dL High 200 [facility] Comment on above: Result Comment: <200 mg/dL Desirable 200-240 mg/dL Borderline >240 mg/dL High Risk Performed By: #### L 100.0100, L501.9520, L501.9985, L801.2600, L500.4050, L500.4100, L506.1000, L501.5200, L3300.1750 #### [facility] [address] [place], [address] Cholesterol in HDL [Mass/Vol] 55 mg/dL Normal [facility] Comment on above: Result Comment: The drugs N-Acetylcysteine and Metamizole may falsely depress this assay. Reference Range HDL <40 mg/dL Low HDL Cholesterol HDL >or= 60 mg/dL High HDL Cholesterol Performed By: #### L 100.0100, L501.9520, L501.9985, L801.2600, L500.4050, L500.4100, L506.1000, L501.5200, L3300.1750 #### [facility] [address] [place], [address] Cholesterol in LDL [Mass/Vol] 229 mg/dL High 0-130 [facility] Comment on above: Performed By: #### L 100.0100, L501.9520, L501.9985, L801.2600, L500.4050, L500.4100, L506.1000, L501.5200, L3300.1750 #### [facility] [address] [facility] [place], [address] Cholesterol in VLDL [Mass/Vol] 19 mg/dL Normal 5-40 [facility] Comment on above: Performed By: #### L 100.0100, L501.9520, L501.9985, L801.2600, L500.4050, L500.4100, L506.1000, L501.5200, L3300.1750 #### [facility] [address] [facility] [place], [address] Triglyceride [Mass/Vol] 97 mg/dL Normal [facility] Comment on above: Result Comment: The drugs N-Acetylcysteine and Metamizole may falsely depress this assay. Serum Triglycerides Reference Interval Normal <150 mg/dL Borderline high 150 - 199 mg/dL High 200 - 499 mg/dL Very High > or = 500 mg/dL Performed By: #### L 100.0100, L501.9520, L501.9985, L801.2600, L500.4050, L500.4100, L506.1000, L501.5200, L3300.1750 #### [facility] [address] [place], [address] Magnesiumon 05-01-2024 Magnesium [Mass/Vol] 2.0 mg/dL Normal 1.6-2.6 [facility] Comment on above: Performed By: #### L 100.0100, L501.9520, L501.9985, L801.2600, L500.4050, L500.4100, L506.1000, L501.5200, L3300.1750 #### [facility] [address] [facility] [place], [place], [id number] Thyroid Stim Hormone (TSH)on 05-01-2024 TSH 2.120 uIU/mL Normal 0.358-3.740 [facility] Comment on above: Performed By: #### L 100.0100, L501.9520, L501.9985, L801.2600, L500.4050, L500.4100, L506.1000, L501.5200, L3300.1750 #### [facility] [address] [facility] [place], [place], [id number] QUANTIFERON TB INCUBATED [CC L]on 08-14-2023 Mitogen minus Nil >9.98 Normal >=0.50 [facility] Comment on above: Performed By: #### 2 92777 #### [facility],[address] [place] [address] TB Gamma Interpretation Infection with M . tuberculosis complex is unlikely. If latent tuberculosis infec Normal [facility] Comment on above: Result Comment: [facility] [address] [place] [address] Wally Nick III, M.D. [id number] Performed By: #### 2 23532 #### [facility],[address] [place] [address] TB NIL 0.02 IU/mL Normal <=8.00 [facility] Comment on above: Performed By: #### 2 70630 #### [facility],[address] [place] [address] TB Result Negative Normal [facility] Comment on above: Performed By: #### 2 39095 #### [facility],[address] [place] [address] TB1 Ag minus Nil 0.15 IU/mL Normal <0.35 [facility] Comment on above: Performed By: #### 2 72923 #### [facility],[address] [place] [address] TB2 Ag minus Nil 0.10 IU/mL Normal <0.35 [facility] Comment on above: Performed By: #### 2 48834 #### [facility],[address] [place] [address] HEP B SURFACE AB, QUANT [CCL ]on 08-13-2023 HepB Surface Ab,Qual Equivocal Normal [facility] Comment on above: Result Comment: No s erological evidence of immunity to Hepatitis B Virus. Performed By: #### 2 64636 #### [facility],[address] [place] [address] HepB SurfaceAb,Quant 11.00 mIU/mL Normal [facility] Comment on above: Result Comment: <8 m IU/mL: No serological evidence of immunity to Hepatitis B Virus. >/= 8 to <12 mIU/mL: No serological evidence of immunity to Hepatitis B Virus. >/= 12 mIU/mL: Consistent with serological evidence of immunity to Hepatitis B Virus. Result rechecked. [facility] [employer] [address] [place] [id number] Wally Nick III, M.D. [id number] Performed By: #### 2 37026 #### [facility],[address] [place] [address] MEASLES IGG ANTIBODY [CCL]on 08-13-2023 Measles IgG, Qual Positive Normal Positive [facility] Comment on above: Result Comment: The result suggests recent or past exposure to Measles virus or Measles vaccination. The current test does not detect neutralizing antibodies. Positive result may also be seen due to presence of passively-transferred antibodies. Please correlate with patient's history. [facility] [address] [place] [address] Wally Ncik III, M.D. [id number] Performed By: #### 2 99348 #### [facility],[address] [place] [address] MUMPS IGG AB [CCL]on 024 Mumps IgG, Qual Positive Normal Positive [facility] Comment on above: Result Comment: The result suggests recent or past exposure to Mumps virus or Mumps vaccination. The current test does not detect neutralizing antibodies. Positive result may also be seen due to presence of passively-transferred antibodies. Please correlate with patient's history. [place] [address] [place] [address] Wally Nick III, M.D. [id number] Performed By: #### 2 [address]2378 #### [address] [address] RUBELLA IgG ANTIBODY [CCL]on 08-13-2023 Rubella IgG Ab, Qual Positive Normal Positive [facility] Comment on above: Result Comment: The result suggests recent or past exposure to Rubella virus or history of Rubella vaccination. Positive result may also be seen due to presence of passively-transferred antibodies. Please correlate with patient's history. [facility] [address] [place] [address] Wally Nick III, M.D. [id number] Performed By: #### 2 90053 #### [facility],[address] [place] [address] GLUCOSEon 08-12-2023 Glucose [Mass/Vol] 95 mg/dL Normal 74 - 106 [facility] Comment on above: Performed By: #### 2 80655 #### [facility],[address] [place] [address] LIPID PROFILEon 08-12-2023 Cholesterol [Mass/Vol] 283 mg/dL High 0 - 240 [facility] Comment on above: Performed By: #### 2 42240 #### [facility],[address] [place] [address] Cholesterol in HDL [Mass/Vol] 54 mg/dL Normal 40 - 60 [facility] Comment on above: Performed By: #### 2 04694 #### [facility],[address] [place] [address] Cholesterol in LDL [Mass/Vol] 213 mg/dL High 0 - 129 [facility] Comment on above: Performed By: #### 2 23905 #### [facility],[address] [place] [address] Cholesterol.total/Iesha sterol in HDL [Mass ratio] 5.2 {ratio} High 0.0 - 5.0 [facility] Comment on above: Performed By: #### 2 55409 #### [facility],[address] [place] [address] Lipid 1996 panel Normal [facility] Comment on above: Result Comment: LIPI D PROFILE Performed By: #### 2 41158 #### [facility],[address] [place] [address] Triglyceride [Mass/Vol] 82 mg/dL Normal 0 - 150 [facility] Comment on above: Performed By: #### 2 56118 #### [facility],[address] [place] [address] URINE COTININE TEST [[facility]]on 08-12-2023 COTININE Negative Normal NORMAL: NEGATIVE [facility] Comment on above: Result Comment: The COT One Step Cotinine Device (Urine) yields a positve result when the Cotinine in urine exceeds 200 ng/mL. A Cotinine concentration > 200 ng/mL indicates an active tobacco product user. The window of detection for Cotinine in urine at a cutoff level of 200 ng/mL is expected to be up to 2-3 days after nicotine use. Performed By: #### 2 57439 #### [facility],[address] [place] [address] Absolute lymphocyte countOrd ered By: Davonte Arellano on 04-03-2023 Lymphocytes Auto (Unsp spec) [#/Vol] 1.48 10*3/uL 0.83-4.51 [facility] Basophil percentageOrdered B y: Davonte Eileen on 04-03-2023 Basophils/100 WBC (Bld) 1.1 % 0-1 [facility] Bilirubin [Mass/Vol] 0.40 mg/dL 0.20-1.00 [facility] Comment on above: For patients on eltr ombopag therapy, use of Dimension [place] TBIL is not recommended. Chloride [Moles/Vol] 106 mmol/L 98-107 [facility] Cholesterol [Mass/Vol] 251 mg/dL <200 [facility] Comment on above: <200 mg/dL Desirable 200-240 mg/dL Borderline >240 mg/dL High Risk Eosinophils/100 WBC (Bld) 6.1 % 0-5 [facility] Glucose [Mass/Vol] 98 mg/dL 74-106 [facility] Neutrophils (Bld) [#/Vol] 3.1 10*3/uL 2.0-7.7 [facility] Neutrophils/100 WBC (Bld) 55.1 % 47-70 [facility] Potassium [Moles/Vol] 3.8 mmol/L 3.5-5.1 [facility] Protein [Mass/Vol] 7.6 g/dL 6.4-8.2 [facility] Sodium [Moles/Vol] 140 mmol/L 136-145 [facility] Triglyceride [Mass/Vol] 104 mg/dL <199 [facility] Comment on above: The drugs N-Acetylcy steine and Metamizole may falsely depress this assay.Serum Triglycerides Reference Interval Normal <150 mg/dL Borderline high 150 - 199 mg/dL High 200 - 499 mg/dL Very High > or = 500 mg/dL WBC (Bld) [#/Vol] 5.5 10*3/uL 4.4-11.0 [facility] Blood erythrocytes count (nu mber/volume)Ordered By: Davonte Arellano on 04-03-2023 RBC (Bld) [#/Vol] 4.80 10*6/uL 4.2-5.4 [facility] Blood hemoglobin measurement (mass/volume)Ordered By: Davonte Arellano on 04-03-2023 Hemoglobin (Bld) [Mass/Vol] 14.2 g/dL 12.0-15.0 [facility] Blood lymphocytes/100 leukoc ytesOrdered By: Davonte Arellano on 04-03-2023 Lymphocytes/100 WBC (Bld) 26.8 % 19-41 [facility] Blood monocytes/100 leukocyt esOrdered By: Davonte Arellano on 04-03-2023 Monocytes/100 WBC (Bld) 10.7 % 0-10 [facility] Blood platelet mean volumeOr dered By: Davonte Arellano on 04-03-2023 Platelet mean volume (Bld) [Entitic vol] 9.3 fL 6.2-12.0 [facility] Determination of erythrocyte mean corpuscular volume (MCV)Ordered By: Davonte Arellano on 04-03-2023 MCV (RBC) [Entitic vol] 92.5 fL 81-99 [facility] Hematocrit Auto (Bld) [Volum e fraction]Ordered By: Davonte Arellano on 04-03-2023 Hematocrit (Bld) [Volume fraction] 44.4 % 37-47 [facility] - Chemistry and C hemistry - challengeOrdered By: Davonte Arellano on 04-03-2023 ALP [Catalytic activity/Vol] 71 U/L 45-117 [facility] ALT [Catalytic activity/Vol] 27 U/L 13-56 [facility] CO2 [Moles/Vol] 27.0 mmol/L 21.0-32.0 [facility] Free T4 [Mass/Vol] 0.83 ng/dL 0.76-1.46 [facility] Globulin (S) [Mass/Vol] 4.2 g/dL 2.2-4.2 [facility] Urea nitrogen/Creatinine [Mass ratio] 17.8 mg/mg 10-20 [facility] - Hematology and Cell countsOrdered By: Davonte Arellano on 04-03-2023 Erythrocyte distribution width (RBC) [Entitic vol] 46.0 fL 35.1-43.9 [facility] Erythrocyte distribution width (RBC) [Ratio] 13.4 % 11.6-14.6 [facility] Immature granulocytes/100 WBC (Bld) 0.200 % 0.0-0.9 [facility] Comment on above: IG% - Immature Granu locytes (promyelocytes, myelocytes and metamyelocytes) > 1% indicates that a LEFT SHIFT is Present. MCH (RBC) [Entitic mass] 29.6 pg 27.0-32.0 [facility] Nucleated RBC/100 WBC (Bld) [Ratio] 0 % 0-5 [facility] MCHC Auto (RBC) [Mass/Vol]Or dered By: Davonte Arellano on 04-03-2023 MCHC (RBC) [Mass/Vol] 32.0 g/dL 32-36 [facility] No Panel InformationOrdered By: Davonte Arellano on 04-03-2023 Estimated GFR (MDRD) Amer 115 mL/min >60 [facility] Comment on above: GFR Calc Estimated GFR (MDRD) Non-Af Amer 95 mL/min >60 [facility] Comment on above: Non- GFR Calc Free Triiodothyronine (T3) pg/dL 2.5 pg/mL 2.18-3.98 [facility] Insulin Level 12.7 mU/L 2.6-37.6 [facility] Thyroid Stimulating Hormone (TSH) 1.95 uIU/mL 0.358-3.74 [facility] Vitamin D 25-Hydroxy 42.5 ng/mL [facility] Comment on above: Vitamin D 25(OH) Sta tus Range Deficiency <20 ng/mL (50nmol/L) Insufficiency 20 - 30 ng/mL (50 - 75 nmol/L) Sufficiency 30 - 100 ng/mL (75 - 250 nmol/L) Toxicity >100 ng/mL (>250 nmol/L) Platelets bldOrdered By: Esme Arellano on 04-03-2023 Platelets (Bld) [#/Vol] 319 10*3/uL 150-450 [facility] Serum or plasma albumin vianney urement (mass/volume)Ordered By: Davonte Arellano on 04-03-2023 Albumin [Mass/Vol] 3.4 g/dL 3.2-5.0 [facility] Serum or plasma albumin/glob ulin mass ratioOrdered By: Davonte Arellano on 04-03-2023 Albumin/Globulin [Mass ratio] 0.8 {ratio} 0.9-2.4 [facility] Serum or plasma calcium vianney urement (mass/volume)Ordered By: Davonte Arellano on 04-03-2023 Calcium [Mass/Vol] 8.3 mg/dL 8.5-10.1 [facility] Serum or plasma cholesterol in HDL measurement (mass/volume)Ordered By: Davonte Arellano on 04-03-2023 Cholesterol in HDL [Mass/Vol] 51 mg/dL >40 [facility] Comment on above: The drugs N-Acetylcy steine and Metamizole may falsely depress this assay. Reference Range HDL <40 mg/dL Low HDL Cholesterol HDL >or= 60 mg/dL High HDL Cholesterol Serum or plasma cholesterol in VLDL measurement (mass/volume)Ordered By: Davonte Arellano on 04-03-2023 Cholesterol in VLDL [Mass/Vol] 21 mg/dL 5-40 [facility] Serum or plasma creatinine m easurement (mass/volume)Ordered By: Davonte Arellano on 04-03-2023 Creatinine [Mass/Vol] 0.67 mg/dL 0.55-1.02 [facility] Comment on above: The validity of the calculated GFR & GFRAA in patients over 70 years has not been determined. Clinical correlation is essential. Serum or plasma low density lipoprotein (LDL) cholesterol measurement (mass/volume)Ordered By: Davonte Arellano on 04-03-2023 Cholesterol in LDL [Mass/Vol] 179 mg/dL 0-130 [facility] Serum or plasma urea nitroge n measurement (mass/volume)Ordered By: Davonte Arellano on 04-03-2023 Urea nitrogen [Mass/Vol] 12 mg/dL 7-18 [facility] Thin prep Papanicolaou smear with manual screeningOrdered By: Davonte Arellano on 04-03-2023 Thin prep Papanicolaou smear with manual screening 18 U/L 15-37 [facility] Thin prep Papanicolaou smear with manual screening 7 5-15 [facility] Whole blood hemoglobin A1c/t otal hemoglobin ratio (mass fraction)Ordered By: Davonte Arellano on 04-03-2023 HbA1c (Bld) [Mass fraction] 5.8 % 3.8-5.6 [facility] Comment on above: Normal < 5.7 % Predi abetic 5.7 - 6.4 % Diabetic >or= 6.5 % Please note range changes. Absolute lymphocyte counton 09-26-2021 Lymphocytes Auto (Unsp spec) [#/Vol] 1.52 10*3/uL 0.83-4.51 [facility] Work Phone: Basophil percentageon 2021 Basophils/100 WBC (Bld) 1.7 % 0-1 [facility] Work Phone: Bilirubin [Mass/Vol] 0.40 mg/dL 0.20-1.00 [facility] Work Phone: Comment on above: For patients on eltr ombopag therapy, use of Dimension [place] TBIL is not recommended. Chloride [Moles/Vol] 106 mmol/L 98-107 [facility] Work Phone: Cholesterol [Mass/Vol] 259 mg/dL <200 [facility] Work Phone: Comment on above: <200 mg/dL Desirable 200-240 mg/dL Borderline >240 mg/dL High Risk Eosinophils/100 WBC (Bld) 5.4 % 0-5 [facility] Work Phone: Glucose [Mass/Vol] 106 mg/dL 74-106 [facility] Work Phone: Comment on above: Fasting Glucose resu lt from 100 to 125 mg/dL suggests IMPAIRED HOMEOSTASIS per A.D.A. criteria. Neutrophils (Bld) [#/Vol] 2.8 10*3/uL 2.0-7.7 [facility] Work Phone: Neutrophils/100 WBC (Bld) 53.6 % 47-70 [facility] Work Phone: Potassium [Moles/Vol] 3.9 mmol/L 3.5-5.1 [facility] Work Phone: Protein [Mass/Vol] 7.4 g/dL 6.4-8.2 [facility] Work Phone: Sodium [Moles/Vol] 141 mmol/L 136-145 [facility] Work Phone: Triglyceride [Mass/Vol] 105 mg/dL [facility] Work Phone: Comment on above: The drugs N-Acetylcy steine and Metamizole may falsely depress this assay.Serum Triglycerides Reference Interval Normal <150 mg/dL Borderline high 150 - 199 mg/dL High 200 - 499 mg/dL Very High > or = 500 mg/dL WBC (Bld) [#/Vol] 5.2 10*3/uL 4.4-11.0 [facility] Work Phone: Blood erythrocytes count (nu mber/volume)on 09-26-2021 RBC (Bld) [#/Vol] 4.81 10*6/uL 4.2-5.4 [facility] Work Phone: Blood hemoglobin measurement (mass/volume)on 09-26-2021 Hemoglobin (Bld) [Mass/Vol] 14.4 g/dL 12.0-15.0 [facility] Work Phone: Blood lymphocytes/100 leukoc yteson 09-26-2021 Lymphocytes/100 WBC (Bld) 29.1 % 19-41 [facility] Work Phone: Blood monocytes/100 leukocyt eson 09-26-2021 Monocytes/100 WBC (Bld) 9.8 % 0-10 [facility] Work Phone: Blood platelet mean volumeon 09-26-2021 Platelet mean volume (Bld) [Entitic vol] 9.1 fL 6.2-12.0 [facility] Work Phone: Determination of erythrocyte mean corpuscular volume (MCV)on 09-26-2021 MCV (RBC) [Entitic vol] 91.7 fL 81-99 [facility] Work Phone: Hematocrit Auto (Bld) [Volum e fraction]on 09-26-2021 Hematocrit (Bld) [Volume fraction] 44.1 % 37-47 [facility] Work Phone: [phone] Iron measurement (mass/mass) on 09-26-2021 Iron (Unsp spec) [Mass/Mass] 87 ug/dL 50-170 [facility] Work Phone: [phone] Laboratory - Chemistry and C hemistry - challengeon 09-26-2021 ALP [Catalytic activity/Vol] 64 U/L 45-117 [facility] Work Phone: [phone] ALT [Catalytic activity/Vol] 24 U/L 13-56 [facility] Work Phone: [phone] CO2 [Moles/Vol] 27.0 mmol/L 21.0-32.0 [facility] Work Phone: [phone] Cobalamin (Vitamin B12) [Mass/Vol] 636 pg/mL 211-911 [facility] Work Phone: Free T4 [Mass/Vol] 0.84 ng/dL 0.76-1.46 [facility] Work [facility]: [phone] Globulin (S) [Mass/Vol] 3.9 g/dL 2.2-4.2 [facility] Work Phone: Magnesium [Mass/Vol] 2.4 mg/dL 1.6-2.6 [facility] Work Phone: [phone] Urea nitrogen/Creatinine [Mass ratio] 21.8 mg/mg 10-20 [facility] Work Phone: [phone] Laboratory - Hematology and Cell countson 09-26-2021 Erythrocyte distribution width (RBC) [Entitic vol] 43.0 fL 35.1-43.9 [facility] Work Phone: Erythrocyte distribution width (RBC) [Ratio] 12.7 % 11.6-14.6 [facility] Work Phone: [phone] Immature granulocytes/100 WBC (Bld) 0.400 % 0.0-0.9 [facility] Work Phone: Comment on above: IG% - Immature Granu locytes (promyelocytes, myelocytes and metamyelocytes) > 1% indicates that a LEFT SHIFT is Present. MCH (RBC) [Entitic mass] 29.9 pg 27.0-32.0 [facility] Work Phone: Nucleated RBC/100 WBC (Bld) [Ratio] 0 % 0-5 [facility] Work Phone: MCHC Auto (RBC) [Mass/Vol]on 09-26-2021 MCHC (RBC) [Mass/Vol] 32.7 g/dL 32-36 [facility] Work Phone: No Panel Informationon 09-26 C-Reactive Protein High Sensitivity 2.18 mg/L [facility] Work Phone: Comment on above: Low Relative Risk of CVD <1.0 mg/L Average Relative Risk of CVD 1.0 - 3.0 mg/L High Relative Risk of CVD >3.0 mg/L Estimated GFR (MDRD) Amer 113 mL/min >60 [facility] Work Phone: Comment on above: GFR Calc Estimated GFR (MDRD) Non-Af Amer 93 mL/min >60 [facility] Work Phone: Comment on above: Non- GFR Calc Free Triiodothyronine (T3) pg/dL 2.5 pg/mL 2.18-3.98 [facility] Work Phone: Homocysteine 7.5 umol/L 3.2-10.7 [facility] Work Phone: Thyroid Stimulating Hormone (TSH) 2.27 uIU/mL 0.358-3.74 [facility] Work Phone: Total Iron Binding Capacity 263 ug/dL 250-450 [facility] Work Phone: Vitamin D 25-Hydroxy 33.3 ng/mL [facility] Work Phone: Comment on above: Vitamin D 25(OH) Sta tus Range Deficiency <20 ng/mL (50nmol/L) Insufficiency 20 - 30 ng/mL (50 - 75 nmol/L) Sufficiency 30 - 100 ng/mL (75 - 250 nmol/L) Toxicity >100 ng/mL (>250 nmol/L) Platelets bldon 09-26-2021 Platelets (Bld) [#/Vol] 299 10*3/uL 150-450 [facility] Work Phone: Serum or plasma albumin vianney urement (mass/volume)on 09-26-2021 Albumin [Mass/Vol] 3.5 g/dL 3.2-5.0 [facility] Work Phone: Serum or plasma albumin/glob ulin mass ratioon 09-26-2021 Albumin/Globulin [Mass ratio] 0.9 {ratio} 0.9-2.4 [facility] Work Phone: Serum or plasma calcium vianney urement (mass/volume)on 09-26-2021 Calcium [Mass/Vol] 8.9 mg/dL 8.5-10.1 [facility] Work Phone: Serum or plasma cholesterol in HDL measurement (mass/volume)on 09-26-2021 Cholesterol in HDL [Mass/Vol] 47 mg/dL [facility] Work Phone: Comment on above: The drugs N-Acetylcy steine and Metamizole may falsely depress this assay. Reference Range HDL <40 mg/dL Low HDL Cholesterol HDL >or= 60 mg/dL High HDL Cholesterol Serum or plasma cholesterol in VLDL measurement (mass/volume)on 09-26-2021 Cholesterol in VLDL [Mass/Vol] 21 mg/dL 5-40 [facility] Work Phone: Serum or plasma cortisol boby surement (mass/volume)on 09-26-2021 Cortisol [Mass/Vol] 17.80 ug/dL 3.44-22.45 [facility] Work Phone: Comment on above: Adult (AM) 5.27 - 22 .45 ug/dL Adult (PM) 3.44 - 16.76 ug/dLPlease note revised CORTISOL reference range effective 2019. Serum or plasma creatinine m easurement (mass/volume)on 09-26-2021 Creatinine [Mass/Vol] 0.69 mg/dL 0.55-1.02 [facility] Work Phone: Comment on above: The validity of the calculated GFR & GFRAA in patients over 70 years has not been determined. Clinical correlation is essential. Serum or plasma estradiol (E 2) measurement (mass/volume)on 09-26-2021 E2 [Mass/Vol] 12.3 pg/mL [facility] Work Phone: Comment on above: NORMAL REFERENCE RAN GES FEMALE FOLLICULAR 21.4 - 164.8 pg/mL MID-CYCLE PEAK 49.9 - 367.2 pg/mL LUTEAL 40.2 - 259.0 pg/mL POST-MENOPAUSAL ON MHT <11.0 - 462.1 pg/mL NOT ON MHT <11.0 - 58.3 pg/mL MALE <11.0 - 52.5 pg/mL NOTE:[employer] HAS CONFIRMED THE DRUG FULVETRANT (FASLODEX) MAY CAUSE FALSELY ELEVATED ESTRADIOL RESULTS WHEN USING THIS TEST METHOD. IF PATIENT IS TAKING FULVESTRANT AN ALTERNATIVE METHOD SHOULD BE USED TO DETERMINE ESTRADIOL CONCENTRATION. Serum or plasma folate measu rement (mass/volume)on 09-26-2021 Folate [Mass/Vol] 12.10 ng/mL 3.1-55.4 [facility] Work Phone: Serum or plasma iron saturat ion measurement (mass fraction)on 09-26-2021 Iron saturation [Mass fraction] 33.1 % 15.0-55.0 [facility] Work Phone: Serum or plasma low density lipoprotein (LDL) cholesterol measurement (mass/volume)on 09-26-2021 Cholesterol in LDL [Mass/Vol] 191 mg/dL 0-130 [facility] Work Phone: Serum or plasma progesterone measurement (mass/volume)on 09-26-2021 Progesterone [Mass/Vol] 0.34 ng/mL See Comment [facility] Work Phone: Comment on above: Progesterone Referen ce Table: UNITS Female: Follicular 0.15 - 1.40 ng/mL Luteal 3.34 - 25.56 ng/mL Mid-luteal 4.44 - 28.03 ng/mL Postmenopausal 0.0 - 0.73 ng/mL : 1st Trimester 11.22 - 90.00 ng/mL 2nd Trimester 25.55 - 89.40 ng/mL 3rd Trimester 48.40 -422.50 ng/mL Serum or plasma prolactin me asurement (mass/volume)on 09-26-2021 Prolactin [Mass/Vol] 9.7 ng/mL [facility] Work Phone: Comment on above: NORMAL REFERENCE RAN GES FEMALE NON- 2.2 - 30.3 ng/mL 8.1 - 347.6 ng/mL POST-MENOPAUSAL 0.7 - 31.5 ng/mL MALE 2.5 - 17.4 ng/mL Serum or plasma urea nitroge n measurement (mass/volume)on 09-26-2021 Urea nitrogen [Mass/Vol] 15 mg/dL 7-18 [facility] Work Phone: Thin prep Papanicolaou smear with manual screeningon 09-26-2021 Thin prep Papanicolaou smear with manual screening 15 U/L 15-37 [facility] Work Phone: Thin prep Papanicolaou smear with manual screening 8 5-15 [facility] Work Phone: Whole blood hemoglobin A1c/t otal hemoglobin ratio (mass fraction)on 09-26-2021 HbA1c (Bld) [Mass fraction] 5.8 % 3.8-5.6 [facility] Work Phone: Comment on above: Normal < 5.7 % Predi abetic 5.7 - 6.4 % Diabetic >or= 6.5 % Please note range changes. Vital Signs Date Time Vital Sign Value Performing Clinician Neili sandro 03-04-2023 08:32-0400 Body height 152.[address] Davonte Arellano Work Phone: [facility] 03-04-2023 08:32-0400 Body mass index (BMI) [Ratio] 35.4 kg/m2 Dr. Davonte Arellano Work Phone: [facility] 03-04-2023 08:32-0400 Body weight 82.[address] Davonte Arellano Work Phone: [facility] 03-04-2023 08:32-0400 Diastolic blood pressure 84 mm[Hg] Dr. Davonte Arellano Work Phone: [facility] 03-04-2023 08:32-0400 Heart rate 87 /min Dr. Davonte Arellano Work Phone: [facility] 03-04-2023 08:32-0400 Respiratory rate 17 /min Dr. Davonte Arellano Work Phone: [facility] 03-04-2023 08:32-0400 SaO2% (BldA) [Mass fraction] 96 % Dr. Davonte Arellano Work Phone: [facility] 03-04-2023 08:32-0400 Systolic blood pressure 124 mm[Hg] Dr. Davonte Arellano Work Phone: [facility] 08-29-2021 08:03-0400 Body height 152.[address] Lu Faust Work Phone: [facility] Work Phone: 08-29-2021 08:03-0400 Body mass index (BMI) [Ratio] 33.7 kg/m2 Dr. Lu Faust Work Phone: [facility] Work Phone: 08-29-2021 08:03-0400 Body temperature 97.8 [degF] Dr. Lu Faust Work Phone: [facility] Work Phone: 08-29-2021 08:03-0400 Body weight 78.[address] Lu Faust Work Phone: [facility] Work Phone: 08-29-2021 08:03-0400 Diastolic blood pressure 62 mm[Hg] Dr. Lu Faust Work Phone: [facility] Work Phone: 08-29-2021 08:03-0400 Heart rate 86 /min Dr. Lu Faust Work Phone: [facility] Work Phone: 08-29-2021 08:03-0400 Respiratory rate 16 /min Dr. Lu Faust Work Phone: [facility] Work Phone: 08-29-2021 08:03-0400 SaO2% (BldA) [Mass fraction] 98 % Dr. Lu Faust Work Phone: [facility] Work Phone: 08-29-2021 08:03-0400 Systolic blood pressure 98 mm[Hg] Dr. Lu Faust Work Phone: [facility] Work Phone: Encounters Encounter Date Encounter Type Care Provider Facility Start: 03-25-2025 End: 03-25-2025 ambulatory Davonte Arellano Facility:[facility] [place] Start: 06-03-2024 Encounter for genera l adult medical examination without abnormal findings Davonte Arellano [facility] Start: 05-01-2024 End: 05-01-2024 ambulatory Davonte Arellano Facility:[facility] Start: 08-12-2023 End: 08-12-2023 ambulatory DAVONTE ARELLANO [facility] Start: 04-03-2023 End: 04-03-[address] Davonte Arellano Work Phone: [facility] Work Phone: Start: 04-03-2023 End: 04-03-[address] Davonte Arellano Work Phone: [facility] Work Phone: Start: 03-04-2023 End: 03-04-2023 Encounter for general adult medical examination without abnormal findings Dr. Davonte Arellano Work Phone: [facility] Start: 03-04-2023 End: 03-04-[address] Davonte Arellano Work Phone: [facility] Work Phone: Start: 09-28-[address] Jose Manuel Faust Work Phone: [facility] Start: 09-26-2021 End: 09-26-[address] Lu Faust Work Phone: [facility] Start: 09-19-2021 End: 09-19-[address] Lu Faust Work Phone: [facility]Out[facility] Start: 08-29-2021 End: 08-29-2021 Encounter for general adult medical examination without abnormal findings Dr. Lu Faust Work Phone: [facility] Start: 08-29-2021 End: 08-29-[address] Lu Faust Work Phone: [facility] Start: 08-24-2021 Non-patient / Non-visit Dr. Adelfo Faust Work Phone: [facility] Procedures Date Procedure Procedure Detail Performing Clinician Start: 09-19-[address] Lu Faust Work Phone: H/O: surgery History of toe surgery Dr. Jose Manuel Faust Work Phone: History of tonsillectomy History of tonsi llectomy Dr. Lu Faust Work Phone: Plan of Treatment Date Care Activity Detail Author Start: 04-20-2025 ambulatory Ambulatory Facility:[facility] Payers Date Payer Category Payer Self-pay [id number] 2024 Unknown [id number] Unknown [id number] Unknown [id number] Unknown [id number] Social History Date Type Detail Facility Start: 08-29-2021 End: 03-04-2023 Tobacco smoking status ALIS Unknown if ever smoked [facility] Start: 1965 Sex Assigned At Female W [facility] Evaluation note Note Date & Type Note Facility Evaluation note Diagnosis Onset Date Encounter for wellness examination in adult acute Fatty liver acute GERD (gastroesophageal reflux disease) acute Hyperlipemia acute Obesity (BMI 30.0-34.9) acut e Pancreatic insufficiency acu te Raynaud's disease [facility] Work Phone: Evaluation note Note Date & Type Note Facility Evaluation note Diagnosis Onset Date Encounter for wellness examination in adult acute Fatty liver acute Hyperlipemia [facility] Work Phone: Chief Complaint and Reason for Visit Chief Complaint Amb Documentation SURGICAL SCHEDULER, 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 Reason for Visit Encounter for wellne ss examination in adult Fatty liver GERD (gastroesophageal reflux disease) Hyperlipemia Obesity (BMI 30.0-34.9) Pancreatic insufficiency Raynaud's disease Chief Complaint Annual INT LABS Reason for Visit Encounter for wellne ss examination in adult Fatty liver Hyperlipemia Family History No Family History Records Found Relationship Condition Age at Onset Recorded Date/T rere sister Alcoholism Unknown father Cardiac disease Unknown Hyperlipidemia Unknown mother Osteoporosis Unknown Summary Purpose Advance Directives No Advanced Directives Records FoundNo Advanced Directives Records Found Additional Source Comments Goals (unrecognized section and content) Goals may be documented in a n alternate sectionGoals may be documented in an alternate section Care Teams (unrecognized sec tion and content) Team Status: Active Member Role Status Dates Dr. Lu Faust MD Family Provider Active Dr. Davonte Arellano MD Primary Care Provider Active Team Status: Inactive Member Role Status Dates Dr. Davonte Arellano MD Primary Care Provider, Attendi ng Provider Active Team Status: Inactive Member Role Status Dates Dr. Davonte Arellano MD Primary Care Pro vider, Attending Provider, Referring Provider Active INFORMATION SOURCE (unrecogn ized section and content) DATE CREATED AUTHOR 08/15/2023 [facility] DATE CREATED AUTHOR AUTHOR'S ORGANIZ ATION 03/29/2025 [facility] FOR RECORDS PERTAINING TO PATIENTS WHO ARE OR HAVE BEEN ENROLLED IN A CHEMICAL DEPENDENCY/SUBSTANCEABUSE PROGRAM, SOME INFORMATION MAY BE OMITTED. This clinical summary was aggregated from multiple sources. Caution should be exercised in using it in the provision of clinical care. This summary normalizes information from multiple sources, and as a consequence, information in this document may materially change the coding, format and clinical context of patient data. In addition, data may be omitted in some cases. CLINICAL DECISIONS SHOULD BE BASED ON THE PRIMARY CLINICAL RECORDS. [employer] provides no warranty or guarantee of the accuracy or completeness of information in this document.
== END | disposition home or self-care (01) ==
PROVIDERS: PCP Internal Medicine; Referring Provider Internal Medicine; Visit Provider Internal Medicine
DX: Z12.31 Encounter for screening mammogram for malignant neoplasm of breast (principal)
CPT/HCPCS: 77063; 77067